=== PATIENT | female | born 1980 | race Caucasian/White ===

== ENCOUNTER 2020-08-07 12:11 | Day surgery (SDC) | payer BC ==
[~2020-08-07 12:11] MED LIST: AVIANE1 EACH PO; FALMINA1 EACH PO; FLAGYL500 MG PO; IRON325 M1 PO; LIALDA1.2 GM PO; PANTOPRAZOLE SO40 MG PO; PREDNISONE20 MG PO; ROPINIROLE HCL0.5 MG PO; VITAMIN C500 M1 PO; ZOFRAN ODT4 MG PO
[2020-08-07] MEDS ORDERED: FLUOXETINE HCL20 MG PO (12:38)
[2020-08-07] MEDS ORDERED: VITAMIN D3125 MC1 PO (12:39)
[2020-08-07] MEDS ORDERED: MAGNESIUM400 M1 PO (12:39)
--- NOTE | 2020-08-07 14:15 | NUR ---
08/07/20 1415 Kamila Jon 1411 PT TO PACU AWAKE AND ALERT DENIES PAIN OR NAUSEA.
--- NOTE | 2020-08-08 16:56 | OR ---
[facility] [address] [place], [place] [address] Signed DATE OF OPERATION: 08/07/2020 SURGEON: Ladan Martins MD PREOPERATIVE DIAGNOSES: 1. History of ulcerative colitis, maintenance therapy of mesalamine, recent flare of symptoms (the original diagnosis 2016). 2. Recent flare type symptoms including diarrhea, minimal blood per rectum. POSTOPERATIVE DIAGNOSES: Segmental colitis from 35 to 45 cm with mild proctitis. Remaining colonic mucosa normal with pseudopolyps. PROCEDURES: 1. Total colonoscopy to cecum with biopsy of cecum, right colon, left colon, sigmoid and rectum. 2. Biopsies of segmental colitis, left colon 35 to 45 cm. 3. Excision of polyps x2 (probable pseudopolyps). ANESTHESIA: Intravenous sedation, fentanyl 150 mcg and Versed 10 mg. 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 She was treated in the usual way initially and ultimately transitioned to mesalamine, which she has been taking on a b.i.d. basis with good clinical result. In the past several weeks, she has had what seems to be a "flare" of colitis including some diarrhea, loose bowel movements and rare occasions of small bleeding. She is admitted at this time to undergo colonoscopy to assess for ulcerative colitis in flare or other etiologies of the problem including but not limited to neoplasm. She understands the risk of bleeding, infection, and perforation related to colonoscopy and wished to proceed. FINDINGS: The prep was excellent. Complete colonoscopy was undertaken to the cecum without question. Entirely normal mucosa was noted of the right colon, transverse colon, left colon, and with segmental sparing noted in the sigmoid, but with significant inflammatory change between 35 and 45 cm. Additionally, there was friability of the rectal mucosa with some inflammation for which biopsies were obtained. The ileum was not intubated, though attempts were made to do so. There were pseudopolyps in the Electronically Signed By: LADAN MARTINS MD 08/08/20 1656 PATIENT NAME: SOLIS KATE OPERATIVE REPORT DATE OF : 84 REPORT #: [id number] PHYSICIAN: LADAN MARTINS MD PCP: CONSUELO IVORY PA-C REPORT IS CONFIDENTIAL AND NOT TO BE RELEASED WITHOUT AUTHORIZATION [facility] [address] [place] [address] Signed "normal" mucosa. DESCRIPTION OF PROCEDURE: The patient was brought to the endoscopy suite and placed in the lateral decubitus position given intravenous sedation to the point of slurred speech and nystagmus. Digital rectal examination was normal. An Olympus video colonoscope was passed in the rectum. Some friability of the rectal mucosa was noted and an inflammatory appearance was noted. Biopsies were obtained. The scope was advanced out of the rectum and the sigmoid appeared essentially normal. The scope was advanced to approximately 35 to 40 cm and circumferential significant inflammation and edema was noted with some minimal ulceration. The scope was passed beyond this to what appeared to be normal mucosa at the splenic flexure and beyond. The scope was ultimately advanced to the cecum. The cecal mucosa was entirely normal. Biopsies were obtained there to assess for occult colitis. The ileocecal valve was identified but not able to be intubated, though attempts were made to do so. The scope was withdrawn and a biopsy of the right colon was undertaken and a pseudopolyp appearing lesion of the hepatic flexure excised. Further withdrawal of the scope showed several areas with pseudopolyps in the transverse colon. An additional polyp was excised to affirm pseudopolyp impression. The scope was withdrawn past the splenic flexure at approximately 45 cm from the anal verge was an area of circumferential edematous erythematous thickening with some small amounts of ulceration. Biopsies were obtained there. There did not appear to be the typical findings of ischemic colitis, so it is a consideration given the extent and location of the problem. The scope was withdrawn further identifying the distal portion of the segmental colitis. This too was biopsied. The scope was withdrawn to normal-appearing mucosa in the sigmoid which was biopsied and further withdrawal allowed visualization of the rectum. The rectum did have some mild inflammation. Biopsies were obtained there as well. The scope was then removed and the patient was taken to recovery room in good condition. CONCLUDING DIAGNOSES: Apparent segmental severe colitis in the left colon proximal to sigmoid with pseudopolyposis of normal-appearing mucosa and mild friability of rectum. Though ulcerative colitis is the most likely underlying etiology, the findings are somewhat suggestive to ischemic colitis, however, unlikely that might be at her age. Biopsies may be more demonstrative as a definitive answer for this. She does have friability of the rectum, but nothing is inflamed as that of the left colon. As regards to the polyps certainly pseudopolyps and unrelated to hazard for cancer proper. PLAN: We will initiate Flagyl 250 mg p.o. t.i.d. as well as Cipro 500 mg p.o. b.i.d., all these for 7 days. She will continue her mesalamine. We will see her back in the office in 4 to 6 weeks to review her pathology report and her clinical findings. Electronically Signed By: LADAN MARTINS MD 08/08/20 8244 PATIENT NAME: SOLIS KATE OPERATIVE REPORT DATE OF : 84 REPORT #: [id number] PHYSICIAN: LADAN MARTINS MD PCP: CONSUELO IVORY PA-C REPORT IS CONFIDENTIAL AND NOT TO BE RELEASED WITHOUT AUTHORIZATION [address] [place], [place] [address] Signed MD AJ Armenta/OSCAR /[id number] cc: ISAAC Valencia Copies: ~ Electronically Signed By: LADAN MARTINS MD 08/08/20 1656 PATIENT NAME: SOLIS KATE OPERATIVE REPORT DATE OF : 84 REPORT #: [id number] PHYSICIAN: LADAN MARTINS MD PCP: CONSUELO IVORY PA-C REPORT IS CONFIDENTIAL AND NOT TO BE RELEASED WITHOUT AUTHORIZATION
--- NOTE | 2020-08-09 11:38 | PATH ---
[facility] [address] [place], [place] [address] Signed SPECIMEN(S): A ASCENDING POLYP SPECIMEN(S): B CECUM SPECIMEN(S): C ASCENDING SPECIMEN(S): D HEPATIC FLEXURE POLYP SPECIMEN(S): E SPLENIC FLEXURE POLYP SPECIMEN(S): F DESCENDING SPECIMEN(S): G DESCENDING 50 CM SPECIMEN(S): H DESCENDING 40 CM SPECIMEN(S): I DESCENDING 35 CM SPECIMEN(S): J SIGMOID 15 CM SPECIMEN(S): K RECTUM SPECIMEN SOURCE: A. ASCENDING POLYP B. CECUM C. ASCENDING D. HEPATIC FLEXURE POLYP E. SPLENIC FLEXURE POLYP F. DESCENDING G. DESCENDING 50 CM H. DESCENDING 40 CM I. DESCENDING 35 CM J. SIGMOID 15 CM K. RECTUM CLINICAL HISTORY: Colonoscopy with poss. biopsies. Chronic colitis. MICROSCOPIC DESCRIPTION: Histologic sections of all submitted blocks are examined by light microscopy. These findings, together with the gross examination, support the pathologic diagnosis. FINAL PATHOLOGIC DIAGNOSIS: A. Ascending polyp, biopsy: - Quiescent colonic mucosa, negative for dysplasia. B. Cecum, biopsy: - Quiescent colonic mucosa, negative for dysplasia. C. Ascending, biopsy: - Quiescent colonic mucosa, negative for dysplasia. D. Hepatic flexure polyp, biopsy: - Slight chronic active colitis, negative for dysplasia. PATIENT NAME: SOLIS KATE PATHOLOGY DATE OF : 84 REPORT #: [id number] PHYSICIAN: OMAIRA PATHOLOGY PCP: CONSUELO IVORY PA-C REPORT IS CONFIDENTIAL AND NOT TO BE RELEASED WITHOUT AUTHORIZATION [facility] [address] [place], [place] [address] Signed E. Splenic flexure polyp, biopsy: - Quiescent colonic mucosa, negative for dysplasia. F. Descending colon, biopsy: - Mild chronic active colitis, negative for dysplasia. G. Descending colon, at 50 cm, biopsy: - Moderate chronic active colitis, negative for dysplasia. H. Descending colon, at 40 cm, biopsy: - Quiescent colonic mucosa, negative for dysplasia. I. Descending colon, at 35 cm, biopsy: - Moderate chronic active colitis, negative for dysplasia. J. Sigmoid colon, at 15 cm, biopsy: - Quiescent colonic mucosa, negative for dysplasia. K. Rectum, biopsy: - Mild chronic active colitis, negative for dysplasia. COMMENT: The patient's history of ulcerative colitis is noted. The histologic features are compatible with this history. JVR:cml:[id number] GROSS DESCRIPTION: Eleven specimens are received in eleven containers, labeled "NK." A. The specimen, labeled "NK, 1," and designated on the requisition "ascending colon polyp," is received in formalin and consists of two hope soft tissue fragments that measure 0.2-0.3 cm in greatest dimension. The specimen is entirely submitted in cassette (A1). B. The specimen, labeled "NK, 2," and designated on the requisition "cecum," is received in formalin and consists of two hope soft tissue fragments that measure 0.2-0.3 cm in greatest dimension. The specimen is entirely submitted in cassette (B1). C. The specimen, labeled "NK, 3," and designated on the requisition "ascending colon biopsy," is received in formalin and consists of one hope soft tissue fragment that measures 0.3 cm in greatest dimension. The specimen is entirely submitted in cassette (C1). D. The specimen, labeled "NK, 4," and designated on the requisition "hepatic flexure pseudopolyp," is received in formalin and consists of two hope soft tissue fragments that measure 0.2-0.4 cm in greatest dimension. The specimen is entirely submitted in cassette (D1). E. The specimen, labeled "NK, 5," and designated on the requisition "splenic flexure pseudopolyp," is received in formalin and consists of one hope soft tissue fragment that measure 0.3 cm in greatest PATIENT NAME: SOLIS KATE PATHOLOGY DATE OF : 84 REPORT #: [id number] PHYSICIAN: OMAIRA JONES PCP: CONSUELO IVORY PA-C REPORT IS CONFIDENTIAL AND NOT TO BE RELEASED WITHOUT AUTHORIZATION [facility] [address] [place], [place] [address] Signed dimension. The specimen is entirely submitted in cassette (E1). F. The specimen, labeled "NK, 6," and designated on the requisition "descending colon," is received in formalin and consists of two hope soft tissue fragments that measure 0.3-0.4 cm in greatest dimension. The specimen is entirely submitted in cassette (F1). G. The specimen, labeled "NK, 7," and designated on the requisition "descending colon at 50 cm," is received in formalin and consists of two hope soft tissue fragments that measure 0.3 cm in greatest dimension. The specimen is entirely submitted in cassette (G1). H. The specimen, labeled "NK, 8," and designated on the requisition "descending colon at 40 cm," is received in formalin and consists of two hope soft tissue fragments that measure 0.3-0.7 cm in greatest dimension. The specimen is entirely submitted in cassette (H1). I. The specimen, labeled "NK, 9," and designated on the requisition "descending colon at 35 cm," is received in formalin and consists of one hope soft tissue fragment that measures 0.3 cm in greatest dimension. The specimen is entirely submitted in cassette (I1). J. The specimen, labeled "NK, 10," and designated on the requisition "sigmoid colon at 15 cm," is received in formalin and consists of one hope soft tissue fragment that measures 0.4 cm in greatest dimension. The specimen is entirely submitted in cassette (J1). K. The specimen, labeled "NK, 11," and designated on the requisition "rectum," is received in formalin and consists of two hope soft tissue fragments that measure 0.3 cm in greatest dimension. The specimen is entirely submitted in cassette (K1). AT (under the direct supervision of a pathologist) The Gross Description was prepared using a voice recognition system. The report was reviewed for accuracy; however, sound-alike word errors, addition and/or deletions may occur. If there is any question about this report, please contact Client Services. PERFORMING LABORATORY: The technical component was performed by [facility], [address] [place] [id number] ([employer] Supervisor: Katherine Olivares MD; CLIA# [id number]). Professional interpretation was performed by [facility] [address]. Diagnostician: Palmer Garcia MD Pathologist Electronically Signed 08/09/2020 PATIENT NAME: SOLIS KATE PATHOLOGY DATE OF : 84 REPORT #: [id number] PHYSICIAN: OMAIRA JONES PCP: CONSUELO IVORY PA-C REPORT IS CONFIDENTIAL AND NOT TO BE RELEASED WITHOUT AUTHORIZATION [address] [place], [place] [address] Signed Copies: ~ PATIENT NAME: SOLIS KATE PATHOLOGY DATE OF : 84 REPORT #: [id number] PHYSICIAN: OMAIRA JONES PCP: CONSUELO IVORY PA-C REPORT IS CONFIDENTIAL AND NOT TO BE RELEASED WITHOUT AUTHORIZATION
== END 2020-08-07 14:55 | disposition home or self-care (01) ==
LOC: OPS 12:11 → DS 12:11 → OPS 13:00 → DS 13:00 → OPS 14:55
PROVIDERS: ATTEND Surgery
PROC: 0DBL8ZX Excision of Transverse Colon, Via Natural or Artificial Opening Endoscopic, Diagnostic (ICD-10-PCS; 2020-08-07)
PROC: 0DBN8ZX Excision of Sigmoid Colon, Via Natural or Artificial Opening Endoscopic, Diagnostic (ICD-10-PCS; 2020-08-07)
PROC: 0DBP8ZX Excision of Rectum, Via Natural or Artificial Opening Endoscopic, Diagnostic (ICD-10-PCS; 2020-08-07)
PROC: 0DBH8ZX Excision of Cecum, Via Natural or Artificial Opening Endoscopic, Diagnostic (ICD-10-PCS; principal; 2020-08-07 13:00)
DX: K50.118 Crohn's disease of large intestine with other complication (principal); K62.89 Other specified diseases of anus and rectum; K52.9 Noninfective gastroenteritis and colitis, unspecified; I10 Essential (primary) hypertension; G25.81 Restless legs syndrome
CPT/HCPCS: 84703; 99153; G0500; J2250; J3010

== ENCOUNTER 2025-05-20 09:59 | Day surgery (SDC) | payer BC ==
[2025-05-12 07:20] VITALS: BP 146/99
[~2025-05-20] VITALS: Ht 167.6 cm; Wt 93.0 kg
[~2025-05-20 09:59] MED LIST changes: +CALCI-MAX CAPS1 EACH PO; +FLUOXETINE HCL20 MG PO; +IBLOOD GLUCOSE TEST STRIP 1 EA TEST VI PRN; +LACTATED RINGER'S 1,000 ML IV SCH; +LIDOCAINE HCL 1% 5 ML SDV INJ ONE; +MAGNESIUM400 M1 PO; +VITAMIN D3125 MC1 PO
[2025-05-20] MEDS ORDERED: LIDOCAINE HCL 2% 5 ML SDV ONE (10:06)
[2025-05-20 10:08] VITALS: BP 151/86
--- NOTE | 2025-05-20 11:25 | NUR ---
05/20/25 1125 Fatemeh Davis 1119: PT ARRIVED TO PACU VIA STRETCHER. PT AWAKE. PT ATTEMPTING TO SIT UP IN BED. PT ABLE TO FOLLOW DIRECTIONS. 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
[2025-05-20 11:50] VITALS: BP 169/107
--- NOTE | 2025-05-24 14:13 | OR ---
[facility] [address] [place], [place] [address] Signed DATE OF OPERATION: 05/20/2025 SURGEON: Ladan Martins MD PREOPERATIVE DIAGNOSIS: Chronic ulcerative colitis, currently asymptomatic. POSTOPERATIVE DIAGNOSES: 1. Segmental inflammatory changes of sigmoid colon and minimal rectum. 2. Pseudopolyps. PROCEDURES: 1. Total colonoscopy to cecum with cold morcellation, excision of correspondence representative stool polyp. 2. Biopsies of sigmoid, rectum and cecum. ANESTHESIA: Intravenous sedation propofol; Cathie Moraes CRNA. 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 She is known to me from the past having been diagnosed with ulcerative colitis and managed medically since that time. She last underwent colonoscopy in 2020 at which time she had segmental colitis between 35 and 45 cm. She was also noted to have mild chronic active colitis in the rectum. The patient continues to take mesalamine 1.2 g twice daily. She is essentially asymptomatic, having no diarrhea. Every two months or so, she will have an episode of flare, always associated with significant stress related to her work. She has not required rescue therapy in any of those times. She is admitted at this time to undergo colonoscopy to assess disease activity and it has been nearly five years since her last evaluation. The risk of bleeding, infection, and perforation were reviewed with her. She understands and wished to proceed. FINDINGS: The prep was good. Complete colonoscopy was undertaken of the cecum with full intubation of the cecum. There were pseudopolyps scattered throughout the colon most dominantly in the left colon. There were no diverticula. There did appear to be some mild inflammation of the sigmoid and to a lesser extent the rectum, but proximal to the mid descending colon. Mucosa was noninflamed. Electronically Signed By: LADAN MARTINS MD 05/24/25 1413 PATIENT NAME: SOLIS KATE OPERATIVE REPORT DATE OF : 84 REPORT #: [id number] PHYSICIAN: LADAN MARTINS MD PCP: CONSUELO IVORY PA-C REPORT IS CONFIDENTIAL AND NOT TO BE RELEASED WITHOUT AUTHORIZATION [facility] [address] [place], [place] [address] Signed DESCRIPTION OF PROCEDURE: The patient was brought to the endoscopy suite, placed in lateral decubitus position, given intravenous sedation with propofol infusional sedation technique by the cardiology fellow. Digital rectal examination was normal. An Olympus video colonoscope was passed in the rectum and manipulated throughout the colon noting colonic pseudopolyps along the way. Scope ultimately passed to the cecum. The ileocecal valve and appendiceal orifice were normal. The scope was withdrawn after biopsy of the cecum and a correspondence representative pseudopolyps of the right colon was excised. Further withdrawal included biopsies elsewhere including transverse colon and ultimately sigmoid colon and rectum. Numerous pseudopolyps were noted in the left colon as noted. The rectum had no obvious inflammation it would appear. The scope was removed. The patient was taken to the recovery room in good condition. CONCLUDING DIAGNOSIS: Asymptomatic ulcerative colitis on medication mesalamine 2.4 g daily. PLAN: Recommend continued use of the mesalamine. We will see her back in the office in a few weeks and review her pathology reports. There is no evidence of adenomatous polyps correspondence representative of pseudopolyp was excised to assure this as well however. Ladan Martins MD JM/MODL /[id number] cc: ISAAC Valencia Copies: ~ Electronically Signed By: LADAN MARTINS MD 05/24/25 1413 PATIENT NAME: SOLIS KATE OPERATIVE REPORT DATE OF : 84 REPORT #: [id number] PHYSICIAN: LADAN MARTINS MD PCP: CONSUELO IVORY PA-C REPORT IS CONFIDENTIAL AND NOT TO BE RELEASED WITHOUT AUTHORIZATION
--- NOTE | 2025-05-25 09:54 | PATH ---
[facility] [address] [facility] [place], [place] [address] Signed SPECIMEN(S): A ILEOCECAL VAVLE BIOPSY SPECIMEN(S): B ASCENDING POLYP SPECIMEN(S): C TRANSVERSE POLYP SPECIMEN(S): D SIGMOID BIOPSY SPECIMEN(S): E RECTUM BIOPSY SPECIMEN SOURCE: A. ILEOCECAL VAVLE BIOPSY B. ASCENDING POLYP C. TRANSVERSE POLYP D. SIGMOID BIOPSY E. RECTUM BIOPSY CLINICAL HISTORY: History of ulcerative colitis, colitis FINAL PATHOLOGIC DIAGNOSIS: A. Ileocecal valve, biopsy: - Benign colonic-type mucosa with no significant abnormality. - No colitis or neoplasm identified. B. Ascending colon polyp: - Polypoid fragment of benign colonic mucosa. - No colitis or neoplasm identified. C. Transverse colon polyp: - Polypoid fragment of benign colonic mucosa. - No colitis or neoplasm identified. D. Sigmoid colon, biopsy: - Chronic active colitis. - No dysplasia or neoplasm identified. - See comment. E. Rectum, biopsy: - Benign colonic mucosa with no significant abnormality. - No colitis or neoplasm identified COMMENT: Specimen D: The history of ulcerative colitis is noted. The findings noted in specimen D are consistent with inflammatory bowel disease. Specimen E is unremarkable raising the possibility of Crohn's disease in specimen D. Clinical-endoscopic correlation is required. JLP PATIENT NAME: SOLIS KATE PATHOLOGY DATE OF : 84 REPORT #: [id number] PHYSICIAN: OMAIRA JONES PCP: CONSUELO IVORY PA-C REPORT IS CONFIDENTIAL AND NOT TO BE RELEASED WITHOUT AUTHORIZATION [facility] [address] [place], [place] [address] Signed MICROSCOPIC EXAMINATION: Histologic sections of all submitted blocks are examined by light microscopy. These findings, together with the gross examination, support the pathologic diagnosis. GROSS DESCRIPTION: A. The specimen, labeled and designated "Kollross, ileocecal valve biopsy," is received in formalin and consists of two hope soft tissue fragments, ranging from 0.4-0.5 cm. Entirely submitted in (A1). B. The specimen, labeled and designated "[place]oll[place], ascending polyp," is received in formalin and consists of five hope soft tissue fragments, ranging from 0.1-0.2 cm. Entirely submitted in (B1). C. The specimen, labeled and designated "[place]ollross, transverse polyp," is received in formalin and consists of one hope soft tissue fragment, 0.3 cm. Entirely submitted in (C1). D. The specimen, labeled and designated "Kollross, sigmoid biopsy," is received in formalin and consists of five hope soft tissue fragments, ranging from 0.3-0.5 cm. Entirely submitted in (D1). E. The specimen, labeled and designated "Kollross, rectum biopsy," is received in formalin and consists of three hope soft tissue fragments, ranging from 0.2-0.3 cm. Entirely submitted in (E1). VB (under the direct supervision of a pathologist) The Gross Description was prepared using a voice recognition system. The report was reviewed for accuracy; however, sound-alike word errors, addition and/or deletions may occur. If there is any question about this report, please contact Client Services. ADDITIONAL NOTES: Immunohistochemical and/or in situ hybridization studies if performed in this case included appropriate positive controls that reacted as expected. This test was developed and its performance characteristics determined by [facility]. It has not been cleared or approved by the U.S. Food and Drug Administration. The FDA has determined that such clearance or approval is not necessary. This test is used for clinical purposes. It should not be regarded as investigational or for research. [facility] is certified under the Clinical Laboratory Improvement Amendments of 1988 (CLIA) as qualified to perform high complexity clinical laboratory testing. PATIENT NAME: SOLIS KATE PATHOLOGY DATE OF : 84 REPORT #: [id number] PHYSICIAN: OMAIRA PATHOLOGY PCP: CONSUELO IVORY PA-C REPORT IS CONFIDENTIAL AND NOT TO BE RELEASED WITHOUT AUTHORIZATION [address] [address] Signed PERFORMING LABORATORY: Technical component was performed by [facility], [address] [place] [id number] (CLIA# [id number]). Professional interpretation was performed by [facility], [address] [place] [id number] (CLIA#: [id number]). Diagnostician: Mo Almanza MD Pathologist Electronically Signed 05/25/2025 Copies: ~ PATIENT NAME: SOLIS KATE PATHOLOGY DATE OF : 84 REPORT #: [id number] PHYSICIAN: OMAIRA PATHOLOGY PCP: CONSUELO IVORY PA-C REPORT IS CONFIDENTIAL AND NOT TO BE RELEASED WITHOUT AUTHORIZATION
== END 2025-05-20 12:02 | disposition home or self-care (01) ==
LOC: DS 09:59
PROVIDERS: ATTEND Surgery
PROC: 0DBN8ZX Excision of Sigmoid Colon, Via Natural or Artificial Opening Endoscopic, Diagnostic (ICD-10-PCS; 2025-05-20)
PROC: 0DBP8ZX Excision of Rectum, Via Natural or Artificial Opening Endoscopic, Diagnostic (ICD-10-PCS; 2025-05-20)
PROC: 0DBH8ZX Excision of Cecum, Via Natural or Artificial Opening Endoscopic, Diagnostic (ICD-10-PCS; principal; 2025-05-20 11:00)
DX: K51.90 Ulcerative colitis, unspecified, without complications (principal); K51.40 Inflammatory polyps of colon without complications; I10 Essential (primary) hypertension; F43.9 Reaction to severe stress, unspecified; E66.9 Obesity, unspecified; Z68.34 Body mass index [BMI] 34.0-34.9, adult; Z79.899 Other long term (current) drug therapy
CPT/HCPCS: 00811; 84703; J2003; J2704; J7121